=== PATIENT | male | born 1980 | race Native Hawaiian/Other Pacific Islander ===

== ENCOUNTER 2016-07-20 10:41 | Emergency (ER) | payer MEDICAID, OTHER ==
[2016-07-20 10:50] VITALS: BP 107/62; PULSE 82; TEMP 98.4; O2SAT 100; BMI 22.9
[2016-07-20 11:05] VITALS: RESP 22
[2016-07-20] MEDS ORDERED: Sodium Chloride 0.9% 500 ML IV STA (11:18)
--- NOTE | 2016-07-20 11:21 | ED PDOC ---
HPI: General Adult Time Seen by Provider: 07/20/16 11:07 Chief Complaint (Nursing): Abdominal Pain Chief Complaint (Provider): epigastric bubbling History Per: Patient History/Exam Limitations: no limitations Onset/Duration Of Symptoms: Days Current Symptoms Are (Timing): Still Present Additional Complaint(s): Pt. with a bubbling in epigastric that is a moving discomfort that goes to the chest and back down and occasionally to the upper left back. Is in random locations at random times. States nausea, that is gone now. Pt. with no vomit , diarrhea, weakness, dyspnea, decreased appetitie, headaches, dizziness, numbness, tingles. No new food or drinks. No travel, drugs, or etoh. Past Medical History Reviewed: Nursing Documentation, Vital Signs Vital Signs: Last Vital Signs Temp 98.4 F 07/20/16 11:03 Pulse 82 07/20/16 11:03 Resp 22 07/20/16 11:03 BP 107/62 07/20/16 11:03 Pulse Ox 100 07/20/16 11:26 - Medical History PMH: No Chronic Diseases Denies: Depression, Chronic Kidney Disease - Family History Family History: States: Unknown Family Hx - Social History Current smoker - smoking cessation education provided: No Alcohol: None Drugs: Denies - Immunization History Hx Tetanus Toxoid Vaccination: No Hx Influenza Vaccination: Yes Hx Pneumococcal Vaccination: No - Home Medications Home Medications: Ambulatory Orders Medication Instructions Recorded No Known Home Med 08/27/15 - Allergies Allergies/Adverse Reactions: Allergies Allergy/AdvReac Type Severity Reaction Status Date / Time No Known Allergies Allergy Verified 09/17/15 21:11 Review of Systems ROS Statement: Except As Marked, All Systems Reviewed And Found Negative Cardiovascular: Positive for: Chest Pain (bubbling) Gastrointestinal: Positive for: Abdominal Pain (bubbling) Musculoskeletal: Positive for: Back Pain (bubbling) Physical Exam - Reviewed Nursing Documentation Reviewed: Yes Vital Signs Reviewed: Yes - Physical Exam Appears: Positive for: Well, Non-toxic, No Acute Distress Head Exam: Positive for: ATRAUMATIC, NORMAL INSPECTION, NORMOCEPHALIC Skin: Positive for: Normal Color, Warm, DRY Eye Exam: Positive for: EOMI, Normal appearance, PERRL ENT: Positive for: Normal ENT Inspection Neck: Positive for: Normal, Painless ROM Cardiovascular/Chest: Positive for: Regular Rate, Rhythm, Chest Non Tender. Negative for: Edema Respiratory: Positive for: CNT, Normal Breath Sounds Gastrointestinal/Abdominal: Positive for: Normal Exam, Bowel Sounds, Soft. Negative for: Tenderness Back: Positive for: Normal Inspection. Negative for: L CVA Tenderness, R CVA Tenderness Extremity: Positive for: Normal ROM. Negative for: Tenderness, Pedal Edema Neurologic/Psych: Positive for: Alert, Oriented - Laboratory Results Result Diagrams: 07/20/16 11:56 07/20/16 11:56 Interpretation Of Abn Labs: no acute - ECG ECG: Positive for: Interpreted By Me, Viewed By Me ECG Rhythm: Positive for: Normal QRS, Normal ST Segment, Sinus Rhythm O2 Sat by Pulse Oximetry: 100 Pulse Ox Interpretation: Normal - Radiology X-Ray: Interpreted by Me, Viewed By Me X-Ray Interpretation: No Acute Disease - Progress ED Course And Treament: 1255: Stable. AAOx3. Walking around in ED. Pain free. Does not want to stay for further evaluation and workup. Will go against medical advice. Is aware unclear what is going on with him and can or have decreased functioning from the cause of his symptoms. Pt. has capacity to make decisions. Disposition - Clinical Impression Clinical Impression: Abdominal pain, Chest pain - Patient ED Disposition Is Patient to be Admitted: No Counseled Patient/Family Regarding: Studies Performed, Diagnosis - Disposition Referrals: [facility] [Outside] (see the clinic without fail in 24hrs.) Disposition: Against Medical Advice Disposition Time: 12:57 Condition: STABLE Additional Instructions: You are going against medical advice. Your symptoms can cause or decreased functioning. It is unclear what your diagnosis is. You should return to the emergency right away for further evaluation and treatment. Instructions: Chest Pain (ED), Acute Abdominal Pain (ED)
--- NOTE | 2016-07-20 11:39 | RAD ---
HISTORY: discomfort abd and chest COMPARISON: No prior. TECHNIQUE: Chest PA and lateral FINDINGS: LUNGS: No active pulmonary disease. Minor biapical pleural thickening. PLEURA: No significant pleural effusion identified. No pneumothorax apparent. CARDIOVASCULAR: Normal. OSSEOUS STRUCTURES: No significant abnormalities. VISUALIZED UPPER ABDOMEN: Normal. OTHER FINDINGS: None. IMPRESSION: Minor biapical pleural thickening. No acute consolidation
[2016-07-20 12:06] LABS: BASO % 1.1 % (0.0-2.0); EOS # 0.1 K/uL (0.0-0.7); EOS % 4.2 % (0.0-4.0); HEMATOCRIT 42.3 % (35.0-51.0); LYMPH # 1.2 K/uL (1.0-4.3); LYMPH % 41.7 % (20.0-40.0); MEAN CELL VOLUME 86.8 fl (80.0-94.0); MEAN CORPUSCULAR HEMOGLOBIN 29.9 pg (27.0-31.0); MEAN CORPUSCULAR HGB CONC 34.5 g/dL (33.0-37.0); MEAN PLATELET VOLUME 7.8 fl (7.2-11.7); MONO # 0.3 K/uL (0.0-0.8); MONO % 11.4 % (0.0-10.0); NEUT # 1.2 K/uL (1.8-7.0); NEUT % 41.6 % (50.0-75.0); NRBC % 0.2 % (0.0-0.0); RED CELL DISTRIBUTION WIDTH 13.4 % (11.5-14.5); WHITE BLOOD COUNT 2.9 K/uL (4.8-10.8)
[2016-07-20 12:23] LABS: ALB/GLOB RATIO 1.4 (1.0-2.1); ALKALINE PHOSPHATASE 65 U/L (38-126); ALT/SGPT 32 U/L (21-72); AST/SGOT 24 U/L (17-59); BILIRUBIN,TOTAL 0.6 mg/dl (0.2-1.3); BLOOD UREA NITROGEN 12 mg/dl (9-20); CALCIUM 9.6 mg/dL (8.4-10.2); CARBON DIOXIDE 30 mmol/L (22-30); CHLORIDE 104 mmol/L (98-107); GFR AFRICAN-AMERICAN > 60; GLUCOSE,RANDOM 91 mg/dL (75-110); LIPASE 66 U/L (23-300); POTASSIUM 4.4 MMOL/L (3.6-5.0); SODIUM 143 mmol/l (132-148); TOTAL PROTEIN 7.8 G/DL (6.3-8.2)
--- NOTE | 2016-07-23 19:08 | CARD ---
APPROVED REPORT EKG Measurement Heart [id number] [id number] <Conclusion> Normal sinus rhythm Normal ECG
== END 2016-07-20 13:00 | disposition left against medical advice (07) ==
LOC: H.ER 10:41
DX: R10.13 Epigastric pain (principal); R07.9 Chest pain, unspecified

== ENCOUNTER 2016-07-21 10:20 | Emergency (ER) | payer MEDICAID ==
[2016-07-21 10:20] VITALS: BMI 22.9
[2016-07-21 10:31] VITALS: BP 99/69; RESP 20; TEMP 98.3; O2SAT 100
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
[2016-07-21 11:16] VITALS: PULSE 79
--- NOTE | 2016-07-23 19:01 | CARD ---
APPROVED REPORT EKG Measurement Heart [id number] <Conclusion> Normal sinus rhythm Normal ECG
== END 2016-07-21 11:37 | disposition home or self-care (01) ==
LOC: H.ER 10:20
DX: R07.89 Other chest pain (principal); R14.0 Abdominal distension (gaseous)

== ENCOUNTER 2017-02-28 07:37 | Emergency (ER) | payer MEDICAID, OTHER ==
[2017-02-28 07:38] VITALS: BMI 22.9
[2017-02-28 07:42] VITALS: BP 131/73; PULSE 89; TEMP 97; O2SAT 100
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
== END 2017-02-28 11:18 | disposition home or self-care (01) ==
LOC: H.ER 07:37
DX: S02.2XXA Fracture of nasal bones, initial encounter for closed fracture (principal); Y04.0XXA Assault by unarmed brawl or fight, initial encounter; Y92.89 Other specified places as the place of occurrence of the external cause